=== PATIENT | female | born 1970 | race Caucasian/White ===

== ENCOUNTER → 2017-05-10 20:49 | Emergency (ER) | payer BC ==
[2017-05-10 21:38] VITALS: BP 150/90
== END | disposition left against medical advice (07) ==
LOC: ED 20:49
DX: R20.0 Anesthesia of skin (principal); R20.2 Paresthesia of skin; Z53.21 Procedure and treatment not carried out due to patient leaving prior to being seen by health care provider
CPT/HCPCS: 99281

== ENCOUNTER 2017-06-22 10:35 | Inpatient (IN) | payer BC ==
[2017-06-22] MEDS ORDERED: NS 0.9% 1000 ML* 1,000 ML IV ONE ×2 (11:21→15:56)
[2017-06-22] MEDS ORDERED: Morphine INJ* 4 MG/ML 1 ML CARPUJECT IV ONE (11:21)
[2017-06-22] MEDS ORDERED: Ondansetron INJ* 2 MG/ML VIAL IV ONE (11:21)
[2017-06-22 12:00] LABS: Hematocrit 37 % (35-47); Hemoglobin 12.3 g/dl (12.0-16.0); Mean Corpuscular HGB Conc 33 g/dl (31-36); Mean Corpuscular Hemoglobin 29 pg (27-31); Mean Corpuscular Volume 86 fL (80-97); Mean Platelet Volume 7 um3 (7.4-10.4); Red Blood Count 4.32 10^6/ul (4.0-5.4); Red Cell Distribution Width 16 % (10.5-15); White Blood Count 8.5 10^3/ul (3.5-10.8)
[2017-06-22 12:13] LABS: ALT 41 U/L (7-52); AST 101 U/L (13-39); Albumin 3.4 g/dL (3.2-5.2); Alkaline Phosphatase 56 U/L (34-104); Anion Gap 10 mmol/L (2-11); BUN/Creatinine Ratio 16.4 (8-20); Blood Urea Nitrogen 9 mg/dL (6-24); C Reactive Protein < 1.00 mg/L (< 5.00); CO2 Carbon Dioxide 23 mmol/L (22-32); Calcium 8.1 mg/dL (8.6-10.3); Chloride 102 mmol/L (101-111); EGFR African American 153.7 (>60); EGFR Non-African American 119.5 (>60); Globulin 2.9 g/dL (2-4); Glucose 134 mg/dL (70-100); Lipase 43 U/L (11.0-82.0); Potassium 3.4 mmol/L (3.5-5.0); Sodium 135 mmol/L (133-145); Total Protein 6.3 g/dL (6.4-8.9)
--- NOTE | 2017-06-22 12:14 | RAD ---
Indication: Cough. 2 views of the chest including dual energy PA views demonstrates no mediastinal shift. Heart is of normal size and configuration. Lung killian appear clear. IMPRESSION: No active cardiopulmonary disease is noted.
[2017-06-22 13:11] LABS: Alcohol 274 mg/dL (<10)
[2017-06-22] MEDS ORDERED: LORazepam INJ* 2 MG/ML 1 ML VIAL IV PUSH ONE ×2 (13:14→15:56)
[2017-06-22] MEDS ORDERED: Iodixanol* (CONTRAST) 320 MG/ML 100 ML SDV IV ONE (13:22)
--- NOTE | 2017-06-22 13:54 | RAD ---
INDICATION: Abdominal pain also left flank pain. History of gastric bypass COMPARISON: None TECHNIQUE: Axial source images were obtained from the hemidiaphragms to the symphysis pubis following administration of oral and intravenous contrast. 100 mL Visipaque 320 was utilized. Coronal and sagittal reconstructed images were acquired. Lung bases: The lung bases are clear. Liver: The liver is enlarged with findings of hepatic steatosis. There are no masses. There is no ductal dilatation. Gallbladder: There are no calcified gallstones. There is no evidence of wall thickening or pericholecystic fluid. The gallbladder is mildly distended Spleen: The spleen is normal in size. There are no masses. Pancreas: There is no focal pancreatic mass or ductal dilatation. Adrenal glands: There is no evidence of adrenal mass. Kidneys: The kidneys are normal in size and position. There are prompt nephrograms and there is prompt excretion bilaterally. There are no renal parenchymal masses. There is no evidence of nephrolithiasis. Air-fluid levels in the minor pelvis Adenopathy: There is no evidence of adenopathy by size criteria. Fluid collections: There are no free or localized fluid collections. Vessels:There are no significant atherosclerotic changes involving the aorta. There is no focal aneurysm. The iliac vessels are normal in caliber. The IVC appears normal. GI tract: There are no acute CT bowel findings. There is no obstruction. The stomach and small bowel appear normal. The lower GI tract is normal. The cecum, ileocecal valve, and terminal ileum appear normal. The appendix is visualized and appear normal. Pelvic organs: The uterus and adnexa appear normal Bladder: There are no bladder masses. Abdominal and pelvic soft tissues: The extraperitoneal abdominal and pelvic soft tissues appear normal.. Osseous structures: There are no acute osseous findings. Other: None IMPRESSION: HEPATOMEGALY WITH HEPATIC STEATOSIS, OTHERWISE NEGATIVE.
[2017-06-22 14:15] LABS: Urine Bilirubin Negative (Negative); Urine Glucose Negative (Negative); Urine Nitrite Negative (Negative)
[2017-06-22] MEDS ORDERED: Ondansetron INJ* 2 MG/ML VIAL IV PRN (17:26)
[2017-06-22] MEDS ORDERED: Albuterol/Ipratropium NEB.SOL* Albuterol 2.5 MG/Ipratropium 0.5 MG 3 ML INH PRN (17:26)
[2017-06-22] MEDS ORDERED: Nicotine Inhaler* 10 MG AMP INH PRN (17:31)
[2017-06-22] MEDS ORDERED: Dextrose 50% Syringe 50 ML* 25 GM/50 ML SYRINGE IV PUSH PRN (17:43)
[2017-06-22] MEDS ORDERED: hydrALAZINE IV* 20 MG/ML VIAL IV SLOW PU PRN (17:44)
[2017-06-22] MEDS ORDERED: Ondansetron INJ* 2 MG/ML VIAL ONE (18:42)
[2017-06-22] MEDS ORDERED: LORazepam INJ* 2 MG/ML 1 ML VIAL ONE (18:46)
[2017-06-22] MEDS: LORazepam INJ* 2 MG/ML 1 ML VIAL IV PUSH SCH ×3 (18:52→22:22)
[2017-06-22] MEDS ORDERED: Ketorolac INJ* 15 MG/ML 1 ML VIAL IV PUSH ONE (18:52)
[2017-06-22] MEDS ORDERED: Thiamine IV* 100 MG, Folic Acid IV* 1 MG, Multiple Vitamin IV ADULT* 10 ML in NS 0.9% 1... IV ONE (19:30)
[2017-06-22] MEDS ORDERED: Mouth Piece, Nicotine* 1 EACH CARTRIDGE INH SCH (19:39)
[2017-06-22] MEDS: Famotidine IV* 10 MG/ML 2 ML (20 mg) IV SCH (20:29)
[2017-06-22] MEDS: Enoxaparin(*) 40 MG/0.4 ML SYR SUBCUT SCH (20:35)
[2017-06-22] MEDS ORDERED: Albuterol 2.5 MG/3 ML NEB.SOL* (0.083%) INH PRN (21:05)
[2017-06-22] MEDS: Insulin LISPRO* 1 UNITS UNIT SUBCUT SCH (21:53)
--- NOTE | 2017-06-22 22:51 | HP ---
CC: ISABELLE Hodgson * ADMISSION HISTORY AND PHYSICAL: DATE OF ADMISSION: 06/22/17 PRIMARY CARE PROVIDER: ISABELLE Hodgson ADMITTING PROVIDER: ISABELLE Stanford SUPERVISING PHYSICIAN: Abilio Paz MD* (DICATED BY ISABELLE STANFORD) CHIEF COMPLAINT: Nausea and vomiting and request for detox. HISTORY OF PRESENT ILLNESS: This is a 47-year-old female with history of alcoholism, hypertension, diabetes who presented to the emergency department with complaints of nausea and vomiting and request for detox. The patient states that she has been poorly for the last 8 days or so and has been attempting to taper herself from alcohol, but feels that she has been unsuccessful in doing so. She drank 2 beers and took 2 shots before coming to the ER to help with the shaking earlier today. She has not been sober in the last 4 to 5 years. She denies any history of seizures associated with withdrawal. In addition to the nausea and vomiting, she has also been having significant amounts of diarrhea over the last week or so. She reports some left -sided flank/back pain over the last 5 days, which is quite uncomfortable, worse with cough and vomiting. She reports a dry cough and some mild shortness of breath. She reports smoking about a pack of cigarettes daily. Denies any fevers, but has had occasional chills. Her appetite has been poor. She has not taken any of her home medications in the last 2 days. She gives a history of an episode of severe hypoglycemia that occurred last week. She stopped her glipizide following that episode but then her glucose began to climb into the mid 200s and she restarted it again earlier this week, but has been without it for the last 2 days. PAST MEDICAL HISTORY: 1. Alcoholism. 2. Hypertension. 3. Diabetes. PAST SURGICAL HISTORY: 1. Gastric bypass. 2. Tubal ligation. 3. x2. 4. Bilateral carpal tunnel release. HOME MEDICATIONS: 1. Albuterol 1 to 2 puffs inhaled q.4 hours as needed for shortness of breath. 2. Ibuprofen 400 mg p.o. q.6 hours as needed for pain. 3. Lisinopril/hydrochlorothiazide 20/25 mg 1 tablet p.o. daily. 4. Glipizide XL 5 mg p.o. daily. SOCIAL HISTORY: The patient lives at home with her boyfriend. 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 She has 2 adult sons. She smokes a pack of cigarettes daily. She admits to drinking about 12 pack of beer daily along with a pint of hard liquor. Denies any illicit drug use. REVIEW OF SYSTEMS: As noted above in HPI, otherwise reviewed and considered negative. PHYSICAL EXAMINATION GENERAL: This is a middle-aged female, in no acute distress, accompanied by a female friend. VITAL SIGNS: Temperature 96.3 degrees Fahrenheit, pulse 104 beats per minute, respiratory rate 16 per minute, oxygen saturation 99% on room air, blood pressure initially noted at 203/127 mmHg, last checked at 169/96. HEENT: Head is normocephalic, atraumatic. Mucous membranes are mildly dry. CARDIOVASCULAR: Rate is tachycardic but regular. No murmurs, rubs or gallops. RESPIRATORY: Lungs are clear to auscultation without wheezes, crackles, or rhonchi. ABDOMEN: Soft and nontender to palpation. EXTREMITIES: No edema noted. SKIN: No concerning rashes or lesions. MUSCULOSKELETAL: The patient has some tenderness to palpation over the left flank region/paraspinal area, which is exacerbated with movement. PSYCH: The patient is alert and appropriate in conversation. Affect is somewhat flat and mood is appropriate to the situation. LABORATORY DATA: CBC shows white blood cell count of 8500, hemoglobin of 12.3 g/dL, platelet count of 255,000. Comprehensive metabolic panel shows a sodium of 135, potassium 3.4, BUN 9, creatinine 0.55, random glucose of 134 mg/dL. Lactic acid 3.;, on repeat down to 2.5. Transaminases and total bilirubin within normal limits. Troponin negative at 0.00. CRP normal at less than 1. Lipase normal at 43. Urinalysis has been unremarkable. Serum alcohol level of 274. IMAGING: Chest x-ray shows no acute process. CTA of the abdomen and pelvis shows no acute process. ASSESSMENT AND PLAN: This is a 47-year-old female with significant history of alcoholism as well as hypertension, hyperlipidemia, who presents with complaints of nausea and vomiting and requests for detox. 1. Alcoholism with early withdrawal - the patient still has significantly elevated serum alcohol level at 274, but is noted to be hypertensive and tachycardic and mildly tremulous in the emergency department. So far, she has received 4 mg of IV Ativan. Her nausea has improved since reaching the emergency department. The patient desires detox and would eventually like to consider rehab most likely outpatient. She will receive a banana bag and be started on daily thiamine as well as folate in addition to multivitamin. We will start a WAM protocol and treat withdrawal symptoms with IV lorazepam as needed. 2. Hypertension - the patient is severely hypertensive in the emergency department and expected the majority of this is likely due to her withdrawal symptoms. She also has chronic hypertension and has missed a couple of days of her medications. We will give her usual home medicines as long as she can continue to tolerate oral and treat with p.r.n. IV hydralazine for more severe hypertension during her hospital stay, but anticipate this will improve as her withdrawal symptoms are treated. 3. Diabetes - the patient is [id number] and glucose is reasonable in the emergency department. We will hold her glipizide as her oral intake will likely be unpredictable and cover with sliding scale Humalog on an as needed basis. 4. Code status. The patient is full code. 5. DVT prophylaxis. She will be started on 40 mg of Lovenox subcu daily. 6. Healthcare proxy. The patient has not identified a proxy at this time. DISPOSITION: The patient is being admitted to inpatient status for acute alcohol withdrawal. Anticipate length of stay to be greater than 2 midnights. ISABELLE STANFORD [id number]/CPS #: [id number] ELIAN
[2017-06-23] MEDS: LORazepam INJ* 2 MG/ML 1 ML VIAL IV PUSH SCH ×4 (00:30→22:24)
[2017-06-23 06:38] LABS: Hematocrit 31 % (35-47); Hemoglobin 10.4 g/dl (12.0-16.0); Mean Corpuscular HGB Conc 34 g/dl (31-36); Mean Corpuscular Hemoglobin 29 pg (27-31); Mean Corpuscular Volume 87 fL (80-97); Mean Platelet Volume 7 um3 (7.4-10.4); Red Blood Count 3.55 10^6/ul (4.0-5.4); Red Cell Distribution Width 16 % (10.5-15); White Blood Count 5.5 10^3/ul (3.5-10.8)
[2017-06-23 06:55] LABS: BUN/Creatinine Ratio 12.3 (8-20); Calcium 7.2 mg/dL (8.6-10.3); EGFR African American 147.5 (>60); EGFR Non-African American 114.7 (>60); Potassium 3.2 mmol/L (3.5-5.0)
[2017-06-23] MEDS ORDERED: Influenza VAC *QUAD* 2017-18* 0.5 ML SYRINGE IM ONE (09:00)
[2017-06-23] MEDS: Thiamine TAB* 100 MG TAB PO SCH (09:23)
[2017-06-23] MEDS: Multivitamins/Minerals TAB PO SCH (09:23)
[2017-06-23] MEDS: Folic Acid TAB* 1 MG PO SCH (09:24)
[2017-06-23] MEDS: Insulin LISPRO* 1 UNITS UNIT SUBCUT SCH ×4 (09:24→20:49)
[2017-06-23] MEDS: Hydrochlorothiazide TAB* 25 MG PO SCH (09:24)
[2017-06-23] MEDS: Lisinopril TAB* 10 MG PO SCH (09:24)
[2017-06-23] MEDS: Famotidine IV* 10 MG/ML 2 ML (20 mg) IV SCH ×2 (09:24→20:36)
[2017-06-23 09:46] LABS: Magnesium 1.7 mg/dL (1.9-2.7)
[2017-06-23] MEDS: Potassium Chlor TAB* 20 MEQ TAB.ER PO SCH ×2 (10:45→13:22)
[2017-06-23] MEDS ORDERED: Magnesium Sulfate 2 GM IV* 2 GM/50 ML BAG IVPB ONE (13:39)
--- NOTE | 2017-06-23 13:45 | PN ---
Subjective Date of Service: 06/23/17 Interval History: Patient seen and examined at bedside. Pt states that she has been having nausea and some diarrhea. Denies fever, chills, shortness of breath, chest discomfort, or vomiting. Pt states that she is interested in rehab but not sure if she would like to do inpatient or outpatient. Family History: Unchanged from Admission Social History: Unchanged from Admission Past Medical History: Unchanged from Admission Objective Active Medications: Albuterol (Ventolin 2.5 Mg/3 Ml Neb.Elma*) 2.5 mg INH Q2H PRN Reason: SOB/ WHEEZING Albuterol/Ipratropium (Duoneb (Albuterol 2.5 Mg/Ipratropium 0.5 Mg)) 1 neb INH [id number] AWAKE PRN Reason: sob/wheezing Device (Nicotine Mouth Piece*) 1 each INH .[facility] Dextrose (D50w Syringe 50 Ml*) 12.5 gm IV PUSH .FOR FS < 60 - SS PRN Reason: FS < 60 Enoxaparin Sodium (Lovenox(*)) 40 mg SUBCUT Q24H [facility] Famotidine (Pepcid Iv*) 10 mg IV BID [facility] Folic Acid (Folvite Tab*) 1 mg PO DAILY [facility] Hydralazine HCl (Apresoline Iv*) 5 mg IV SLOW PU Q4H PRN Reason: sBP>180mmHg Hydrochlorothiazide (Hydrodiuril Tab*) 25 mg PO DAILY [facility] Lactated Ringer's (Lactated Ringers 1000 Ml Bag*) 1,000 mls @ 75 mls/hr IV PER RATE [facility] Insulin Human Lispro (Humalog*) 0 units SUBCUT ACHS [facility] Lisinopril (Prinivil Tab*) 20 mg PO DAILY [facility] Lorazepam (Ativan Inj*) 0 - 3 mg IV PUSH .PER [facility] PROTOCOL [facility] Reason: Protocol Multivitamins/Minerals (Theragran/Minerals Tab*) 1 tab PO DAILY [facility] Nicotine (Nicotine Inhaler*) 10 mg INH Q2H PRN Reason: CRAVING Ondansetron HCl (Zofran Inj*) 4 mg IV Q4H PRN Reason: NAUSEA/VOMITING Potassium Chloride (Klor Con Er Tab*) 40 meq PO Q4H [facility] Stop: 06/23/17 14:01 Thiamine HCl (Vitamin B-1 Tab*) 100 mg PO DAILY [facility] Vital Signs 06/22/17 06/22/17 06/22/17 17:30 18:00 18:29 Temperature 98.6 F Pulse Rate 117 111 111 Respiratory 24 Rate Blood Pressure 188/96 171/82 157/96 (mmHg) O2 Sat by Pulse 96 96 97 Oximetry 06/22/17 06/22/17 06/22/17 18:52 19:52 20:11 Temperature 98.1 F Pulse Rate 115 Respiratory 24 20 24 Rate Blood Pressure 170/108 (mmHg) O2 Sat by Pulse 98 Oximetry 06/22/17 06/22/17 06/22/17 20:26 21:26 22:12 Temperature 97.9 F Pulse Rate 109 Respiratory 20 22 20 Rate Blood Pressure 171/114 (mmHg) O2 Sat by Pulse 98 Oximetry 06/22/17 06/22/17 06/22/17 22:22 22:44 23:22 Temperature Pulse Rate Respiratory 22 18 18 Rate Blood Pressure (mmHg) O2 Sat by Pulse 97 Oximetry 06/23/17 06/23/17 06/23/17 00:30 00:33 01:30 Temperature 98.4 F Pulse Rate 103 Respiratory 19 16 18 Rate Blood Pressure 141/74 (mmHg) O2 Sat by Pulse 97 Oximetry 06/23/17 06/23/17 06/23/17 02:09 02:27 03:27 Temperature Pulse Rate 98 Respiratory 16 18 17 Rate Blood Pressure 147/78 (mmHg) O2 Sat by Pulse 96 Oximetry 06/23/17 06/23/17 06/23/17 04:00 06:10 07:49 Temperature 98.1 F Pulse Rate 89 90 87 Respiratory 16 16 21 Rate Blood Pressure 150/74 151/91 153/86 (mmHg) O2 Sat by Pulse 96 98 97 Oximetry 06/23/17 06/23/17 06/23/17 08:00 08:48 10:31 Temperature 98.3 F Pulse Rate 92 93 Respiratory 16 16 18 Rate Blood Pressure 143/79 (mmHg) O2 Sat by Pulse 98 98 Oximetry Oxygen Devices in Use Now: None Appearance: NAD, laying in bed Ears/Nose/Mouth/Throat: Mucous Membranes Moist Respiratory: Symmetrical Chest Expansion and Respiratory Effort, Clear to Auscultation Cardiovascular: NL Sounds; No Murmurs; No JVD, RRR Abdominal: NL Sounds; No Tenderness; No Distention Extremities: No Edema Skin: No Rash or Ulcers Neurological: Alert and Oriented x 3, NL Muscle Strength and Tone Lines/Tubes/Other Access: Clean, Dry and Intact Peripheral IV - site benign Nutrition: Taking PO's Result Diagrams: 06/23/17 06:27 06/23/17 06:27 Microbiology and Other Data: Microbiology 06/23/17 10:00 Stool Gross Appearance - Final Stool C. difficile DNA Amplification - Final 027 Presumptive NEGATIVE Toxigenic C.diff NEGATIVE Assess/Plan/Problems-Billing Assessment: Ms. Wu is a 47 yo female with PMH significant for HTN, diabetes and alcoholism who presented to the emergency rom with complaints of nausea and vomiting and was requesting alcohol detox. - Patient Problems (1) Alcohol withdrawal Code(s): F10.239 - ALCOHOL DEPENDENCE WITH WITHDRAWAL, UNSPECIFIED SNOMED Code (s): 084043384 Comment: - WAM score 4-9 - Social work consult pending, Pt would like rehab - Continue thiamine and mulitivitamin - Continue WAM protocol and ativan PRN (2) Electrolyte abnormality Code(s): E87.8 - OTH DISORDERS OF ELECTROLYTE AND FLUID BALANCE, NEC SNOMED Code(s): 724607044 Comment: - Suspect secondary to diarrhea - Hypokalemia - will give replacement today and recheck labs in the AM - hypomagnesemia - will give replacement today and recheck labs in the AM (3) HTN (hypertension) Code(s): I10 - ESSENTIAL (PRIMARY) HYPERTENSION SNOMED Code(s): 39205339 Comment: - SBP 140-170's, improving - suspect this is secondary to withdrawal symptoms - Continue lisinopril, HCTZ, and prn hydralazine (4) Diabetes Code(s): E11.9 - TYPE 2 DIABETES MELLITUS WITHOUT COMPLICATIONS SNOMED Code(s) : 30808198 Comment: - Glucose 120-150's - Hold home glipizide - Continue Lispro SS (5) DVT prophylaxis Code(s): HVL7678 - SNOMED Code(s): 819365567 Comment: - SQ Lovenox (6) Full code status Code(s): Z78.9 - OTHER SPECIFIED HEALTH STATUS SNOMED Code(s): 430341465 Status and Disposition: Inpatient. Discharge to home when medically stable.
[2017-06-23] MEDS: Enoxaparin(*) 40 MG/0.4 ML SYR SUBCUT SCH (17:36)
[2017-06-24] MEDS ORDERED: Acetaminophen TAB* 325 MG ONE (01:31)
[2017-06-24] MEDS: Acetaminophen TAB* 325 MG PO PRN ×3 (01:32→19:21)
[2017-06-24 05:47] LABS: Hematocrit 30 % (35-47); Hemoglobin 10.3 g/dl (12.0-16.0); Mean Corpuscular HGB Conc 34 g/dl (31-36); Mean Corpuscular Hemoglobin 30 pg (27-31); Mean Corpuscular Volume 88 fL (80-97); Mean Platelet Volume 7 um3 (7.4-10.4); Red Blood Count 3.46 10^6/ul (4.0-5.4); Red Cell Distribution Width 16 % (10.5-15); White Blood Count 4.8 10^3/ul (3.5-10.8)
[2017-06-24 06:04] LABS: BUN/Creatinine Ratio 7.3 (8-20); Calcium 7.9 mg/dL (8.6-10.3); EGFR African American 215.7 (>60); EGFR Non-African American 167.8 (>60); Potassium 3.5 mmol/L (3.5-5.0)
--- NOTE | 2017-06-24 08:42 | ED ---
Wm Smith Thomas, scribed for Rishi Neff MD on 06/22/17 at 1146 . Abdominal Pain/Female - HPI Summary HPI Summary: The pt is a 47 y/o F presenting to the ED c/o L-sided flank pain that began a few days ago but significantly worsened today. She admits to being an alcoholic and is trying to cut down on her drinking and be admitted to rehab. She typically drinks beer and hard liquor. She is accompanied by a friend, who says that this alcoholism began five years ago The patient had a gastric bypass in 2008. Today, she admits to drinking two shots and two beers in order to stop the shakes. The pt rates the pain 10/10. The pain is aggravated and alleviated by nothing. The patient has treated the pain with nothing CLINICAL LIAISON. Pt additionally c /o nausea, dry heaves, diarrhea, dizziness, disorientation, anorexia, sweats, chills, a cough, numbness in her feet, mildly painful breathing, and menstrual bleeding that is irregular and bright red. She reports that her dry heaving and diarrhea began about 7 days ago. Pt denies dysuria, hematuria, and abd pain. She has not had any falls lately. She says that she frequently passes out d/t her alcohol consumption. She reports that eight days ago she passed out and was unconscious for two hours before paramedics arrived. Her blood glucose was measured at 20. She refused to go to the hospital. Yesterday, she was also a patient at [place] [facility], where she was discharged after bloodwork was obtained. She is on Glipizide and she has not taken it recently. PMHx: DM, HTN, anxiety, alcoholism. PSHx: gastric bypass. SHx: current smoker, heavy daily alcohol use ( admits to alcoholism), no illicit drug use. FHx: DM, CAD, HTN. - History of Current Complaint Chief Complaint: EDGeneral Stated Complaint: LEFT FLANK PAIN, DIARRHEA , Time Seen by Provider: 06/22/17 11:19 Hx Obtained From: Patient, Family/Corrosion Control Technician - friend Keiry is present Hx Last Menstrual Period: 12/20/15 Onset/Duration: Lasting Days - onset "a few days ago", Still Present, Worse Since - this AM Timing: Constant Severity Currently: Severe Pain Intensity: 10 Pain Scale Used: 0-10 Numeric Location: Flank - L-sided Radiates: No Aggravating Factor(s): Nothing Alleviating Factor(s): Position Associated Signs and Symptoms: Positive: Cough, Dizzy, Decreased Appetite, Nausea, Vomiting - dry heaves, Diarrhea, Other: - POS: L-sided flank pain, sweats, numbness in her feet, mildly painful breathing, irregular menstrual bleeding. Negative: Urinary Symptoms Allergies/Adverse Reactions: Allergies Allergy/AdvReac Type Severity Reaction Status Date / Time Celecoxib [From Celebrex] Allergy Intermediate Itching Verified 06/22/17 19:09 Home Medications: Home Medications Albuterol HFA INHALER* [Ventolin HFA Inhaler*] 2 puff INH Q4H PRN 06/22/17 [ History Confirmed 06/22/17] Albuterol inh POWDER (NF) [Proair Respiclick] 1 - 2 puff INH Q4HR PRN 06/22/17 [ History Confirmed 06/22/17] Ibuprofen TAB* [Advil TAB*] 400 mg PO Q6H PRN 06/22/17 [History Confirmed ] Lisinopril/HCTZ 20/25(NF) [Zestoretic 20/25(NF)] 1 tab PO DAILY 06/22/17 [ History Confirmed 06/22/17] glipiZIDE TAB.XL* [Glucotrol XL*] 5 mg PO DAILY 06/22/17 [History Confirmed 09/26] PMH/Surg Hx/FS Hx/Imm Hx Previously Healthy: No Endocrine/Hematology History: Reports: Hx Diabetes Cardiovascular History: Reports: Hx Hypertension Psychiatric History: Reports: Hx Substance Abuse - Alcoholism - Cancer History Hx Chemotherapy: No Hx Radiation Therapy: No - Surgical History Surgery Procedure, Year, and Place: C SECTION -2,. gastric bypass 06/2009. [place] Infectious Disease History: No Infectious Disease History: Denies: Hx Clostridium Difficile, Hx Hepatitis, Hx Human Immunodeficiency Virus (HIV), Hx of Known/Suspected MRSA, Hx Shingles, Hx Tuberculosis, Hx Known/ Suspected VRE, Hx Known/Suspected VRSA, History Other Infectious Disease, Traveled Outside the [place] in Last 30 Days - Family History Known Family History: Positive: Cardiac Disease, Hypertension, Diabetes - Social History Alcohol Use: Daily Alcohol Amount: 6 beers and hard liquor daily, wine Substance Use Type: Reports: None Smoking Status (MU): Heavy Every Day Tobacco Smoker Type: Cigarettes Amount Used/How Often: 1/2 ppd Review of Systems Positive: Chills, Other - POS: sweats. Negative: Fever Negative: Erythema - eyes Negative: Sore Throat Negative: Chest Pain Positive: Cough, Other - POS: mildly painful breathing. Negative: Shortness Of Breath Positive: Vomiting - dry heaves, Diarrhea, Nausea, Other - POS: anorexia. Negative: Abdominal Pain Positive: flank pain - L-sided (onset a few days ago), other - POS: irregular menstrual bleeding. Negative: dysuria, hematuria Negative: Myalgia, Edema - leg Negative: Rash Neurological: Other - POS: dizziness, disorientation Positive: Numbness - in her feet All Other Systems Reviewed And Are Negative: Yes Physical Exam - Summary Physical Exam Summary: Constitutional: Well-developed, Well-nourished, Alert. (-) Distressed Skin: Warm, Dry HENT: Normocephalic; Atraumatic Eyes: Conjunctiva normal Neck: Musculoskeletal ROM normal neck. (-) JVD, (-) Stridor, (-) Tracheal deviation Cardio: Rhythm regular, rate normal, Heart sounds normal; Intact distal pulses; The pedal pulses are 2+ and symmetric. Radial pulses are 2+ and symmetric. (-) Murmur Pulmonary/Chest wall: Effort normal. (-) Respiratory distress, (-) Wheezes, (-) Rales Abd: Soft, (-) Tenderness, (-) Distension, (-) Guarding, (-) Rebound Musculoskeletal: (-) Edema Lymph: (-) Cervical adenopathy Neuro: Alert, Oriented x3 Psych: Mood and affect Normal Triage Information Reviewed: Yes Vital Signs On Initial Exam: Initial Vitals Temp Pulse Resp BP Pulse Ox 96.3 F 104 16 203/127 99 06/22/17 10:42 06/22/17 10:42 06/22/17 10:42 06/22/17 10:42 06/22/17 10:42 Vital Signs Reviewed: Yes Diagnostics - Vital Signs Vital Signs Temp Pulse Resp BP Pulse Ox 06/22/17 11:36 16 06/22/17 11:22 98.5 F 101 20 189/108 97 06/22/17 11:00 98 98 06/22/17 10:53 100 96 06/22/17 10:52 189/108 06/22/17 10:42 96.3 F 104 16 203/127 99 - Laboratory Lab Results: Lab Results 06/22/17 06/22/17 06/22/17 Range/Units 11:40 11:40 11:40 WBC 8.5 (3.5-10.8) 10^3/ul RBC 4.32 (4.0-5.4) 10^6/ul Hgb 12.3 (12.0-16.0) g/dl Hct 37 (35-47) % MCV 86 (80-97) fL MCH 29 (27-31) pg MCHC 33 (31-36) g/dl RDW 16 H (10.5-15) % Plt Count 255 (150-450) 10^3/ul MPV 7 L (7.4-10.4) um3 Neut % (Auto) 66.1 (38-83) % Lymph % (Auto) 24.6 L (25-47) % George % (Auto) 7.6 (1-9) % Eos % (Auto) 0.3 (0-6) % Baso % (Auto) 1.4 (0-2) % Absolute Neuts (auto) 5.6 (1.5-7.7) 10^3/ul Absolute Lymphs (auto) 2.1 (1.0-4.8) 10^3/ul Absolute Monos (auto) 0.6 (0-0.8) 10^3/ul Absolute Eos (auto) 0 (0-0.6) 10^3/ul Absolute Basos (auto) 0.1 (0-0.2) 10^3/ul Absolute Nucleated RBC 0 10^3/ul Nucleated RBC % 0 Sodium 135 (133-145) mmol/L Potassium 3.4 L (3.5-5.0) mmol/L Chloride 102 (101-111) mmol/L Carbon Dioxide 23 (22-32) mmol/L Anion Gap 10 (2-11) mmol/L BUN 9 (6-24) mg/dL Creatinine 0.55 (0.51-0.95) mg/dL Est GFR ( Amer) 153.7 (>60) Est GFR (Non-Af Amer) 119.5 (>60) BUN/Creatinine Ratio 16.4 (8-20) Glucose 134 H (70-100) mg/dL Lactic Acid 3.1 H* (0.5-2.0) mmol/L Calcium 8.1 L (8.6-10.3) mg/dL Total Bilirubin 0.40 (0.2-1.0) mg/dL AST 101 H (13-39) U/L ALT 41 (7-52) U/L Alkaline Phosphatase 56 (34-104) U/L Troponin I 0.00 (<0.04) ng/mL C-Reactive Protein < 1.00 (< 5.00) mg/L Total Protein 6.3 L (6.4-8.9) g/dL Albumin 3.4 (3.2-5.2) g/dL Globulin 2.9 (2-4) g/dL Albumin/Globulin Ratio 1.2 (1-3) Lipase 43 (11.0-82.0) U/L Urine Color Urine Appearance Urine pH (5-9) Ur Specific [place] (1.010-1.030) Urine Protein (Negative) Urine Ketones (Negative) Urine Blood (Negative) Urine Nitrate (Negative) Urine Bilirubin (Negative) Urine Urobilinogen (Negative) Ur Leukocyte Esterase (Negative) Urine Glucose (Negative) Serum Alcohol 274 H (<10) mg/dL 06/22/17 06/22/17 Range/Units 11:57 16:32 WBC (3.5-10.8) 10^3/ul RBC (4.0-5.4) 10^6/ul Hgb (12.0-16.0) g/dl Hct (35-47) % MCV (80-97) fL MCH (27-31) pg MCHC (31-36) g/dl RDW (10.5-15) % Plt Count (150-450) 10^3/ul MPV (7.4-10.4) um3 Neut % (Auto) (38-83) % Lymph % (Auto) (25-47) % George % (Auto) (1-9) % Eos % (Auto) (0-6) % Baso % (Auto) (0-2) % Absolute Neuts (auto) (1.5-7.7) 10^3/ul Absolute Lymphs (auto) (1.0-4.8) 10^3/ul Absolute Monos (auto) (0-0.8) 10^3/ul Absolute Eos (auto) (0-0.6) 10^3/ul Absolute Basos (auto) (0-0.2) 10^3/ul Absolute Nucleated RBC 10^3/ul Nucleated RBC % Sodium (133-145) mmol/L Potassium (3.5-5.0) mmol/L Chloride (101-111) mmol/L Carbon Dioxide (22-32) mmol/L Anion Gap (2-11) mmol/L BUN (6-24) mg/dL Creatinine (0.51-0.95) mg/dL Est GFR ( Amer) (>60) Est GFR (Non-Af Amer) (>60) BUN/Creatinine Ratio (8-20) Glucose (70-100) mg/dL Lactic Acid 2.5 H* (0.5-2.0) mmol/L Calcium (8.6-10.3) mg/dL Total Bilirubin (0.2-1.0) mg/dL AST (13-39) U/L ALT (7-52) U/L Alkaline Phosphatase (34-104) U/L Troponin I (<0.04) ng/mL C-Reactive Protein (< 5.00) mg/L Total Protein (6.4-8.9) g/dL Albumin (3.2-5.2) g/dL Globulin (2-4) g/dL Albumin/Globulin Ratio (1-3) Lipase (11.0-82.0) U/L Urine Color Colorless Urine Appearance Clear Urine pH 6.0 (5-9) Ur Specific [place] 1.003 L (1.010-1.030) Urine Protein Negative (Negative) Urine Ketones Negative (Negative) Urine Blood Negative (Negative) Urine Nitrate Negative (Negative) Urine Bilirubin Negative (Negative) Urine Urobilinogen Negative (Negative) Ur Leukocyte Esterase Negative (Negative) Urine Glucose Negative (Negative) Serum Alcohol (<10) mg/dL Result Diagrams: 06/24/17 05:30 06/24/17 05:30 Lab Statement: Any lab studies that have been ordered have been reviewed, and results considered in the medical decision making process. - Radiology CXR Xray Interpretation: No Acute Changes - No active cardiopulmonary disease. ED physician has read this report and agrees. Radiology Interpretation Completed By: Radiologist - CT CT Abd/Pel CT Interpretation: Positive (See Comments) - CT Abd/Pel shows hepatomegaly with hepatic steatosis, otherwise negative. ED Physician has reviewed this report and agrees. CT Interpretation Completed By: Radiologist Re-Evaluation - Re-Evaluation First Eval Re-Evaluation Time: 16:00 Change: Unchanged Comment: The patient is tremulous, HR is in the low 100s, and BP is 150s systolic. I offered outpatient management for alcohol withdrawal. The patient said that she did not feel comfortable going home. Abdominal Pain Fem Course/Dx - Course Course Of Treatment: The pt is a 47 y/o F with a Hx of alcoholism and gastric bypass L-sided flank pain that began a few days ago but significantly worsened today. Pt additionally c/o nausea, dry heaves, diarrhea, dizziness, disorientation, anorexia, sweats, chills, a cough, numbness in her feet, mildly painful breathing, and menstrual bleeding that is irregular and bright red. She reports that her dry heaving and diarrhea began about 7 days ago. Yesterday, she was also a patient at [place] [facility], where she was discharged after bloodwork was obtained. Records from [place] were obtained. At re-evaluation at 15:56, the patient is tremulous, HR is in the low 100s, and BP is 150s systolic. I offered outpatient management for alcohol withdrawal. The patient said that she did not feel comfortable going home. In the ED course, the patient was given IV fluids, Ativan, Morphine, and Zofran. Bloodwork was obtained and it shows serum alcohol 274, lactic acid 3.1, and lipase 43. UA shows specific gravity 1.003. EKG shows biphasic T-waves V3-V6. CXR was negative. CT Abd/Pel shows hepatomegaly with hepatic steatosis, otherwise negative. ED Physician has reviewed this report and agrees. I consulted with ISABELLE Osei, at 16:40. She admits the patient to [facility]. - Diagnoses Provider Diagnoses: Alcohol withdrawal - Provider Notifications Discussed Care Of Patient With: Aaron Grier Time Discussed With Above Provider: 16:40 Instructed by Provider To: Other - She admits the patient to [facility]. Discharge - Discharge Plan Condition: Fair Disposition: ADMITTED TO [facility] The documentation as recorded by the eseibWm elmore Thomas accurately reflects the service I personally performed and the decisions made by me, Rishi Neff MD.
[2017-06-24] MEDS: Insulin LISPRO* 1 UNITS UNIT SUBCUT SCH ×4 (08:45→21:13)
[2017-06-24] MEDS: Lisinopril TAB* 10 MG PO SCH (08:45)
[2017-06-24] MEDS: Hydrochlorothiazide TAB* 25 MG PO SCH (08:45)
[2017-06-24] MEDS: Famotidine IV* 10 MG/ML 2 ML (20 mg) IV SCH ×2 (08:45→21:15)
[2017-06-24] MEDS: Thiamine TAB* 100 MG TAB PO SCH (08:45)
[2017-06-24] MEDS: Multivitamins/Minerals TAB PO SCH (08:45)
[2017-06-24] MEDS: Folic Acid TAB* 1 MG PO SCH (08:45)
[2017-06-24] MEDS: LORazepam INJ* 2 MG/ML 1 ML VIAL IV PUSH SCH ×2 (09:33→19:22)
--- NOTE | 2017-06-24 15:23 | PN ---
Subjective Date of Service: 06/24/17 Interval History: Patient seen and examined at bedside. Pt states that she is feeling ok, she reports tremors this afternoon and some anxiety. Denies fever, chills, shortness of breath, chest discomfort, N/V/D. Pt states that she would like to go to outpatient alcohol rehab and has been provided with phone numbers for local agencies. Family History: Unchanged from Admission Social History: Unchanged from Admission Past Medical History: Unchanged from Admission Objective Active Medications: Acetaminophen (Tylenol Tab*) 650 mg PO Q6H PRN Reason: FEVER/PAIN Albuterol (Ventolin 2.5 Mg/3 Ml Neb.Elma*) 2.5 mg INH Q2H PRN Reason: SOB/ WHEEZING Albuterol/Ipratropium (Duoneb (Albuterol 2.5 Mg/Ipratropium 0.5 Mg)) 1 neb INH [id number] AWAKE PRN Reason: sob/wheezing Device (Nicotine Mouth Piece*) 1 each INH .CARTRIDGE PENDING SALE TO [facility] Dextrose (D50w Syringe 50 Ml*) 12.5 gm IV PUSH .FOR FS < 60 - SS PRN Reason: FS < 60 Enoxaparin Sodium (Lovenox(*)) 40 mg SUBCUT Q24H DEBBY Famotidine (Pepcid Iv*) 10 mg IV BID DEBBY Folic Acid (Folvite Tab*) 1 mg PO DAILY DEBBY Hydralazine HCl (Apresoline Iv*) 5 mg IV SLOW PU Q4H PRN Reason: sBP>180mmHg Hydrochlorothiazide (Hydrodiuril Tab*) 25 mg PO DAILY PENDING SALE TO [facility] Lactated Ringer's (Lactated Ringers 1000 Ml Bag*) 1,000 mls @ 75 mls/hr IV PER RATE PENDING SALE TO [facility] Insulin Human Lispro (Humalog*) 0 units SUBCUT ACHS DEBBY Lisinopril (Prinivil Tab*) 20 mg PO DAILY DEBBY Lorazepam (Ativan Inj*) 0 - 3 mg IV PUSH .PER [facility] PROTOCOL DEBBY Reason: Protocol Multivitamins/Minerals (Theragran/Minerals Tab*) 1 tab PO DAILY PENDING SALE TO [facility] Nicotine (Nicotine Inhaler*) 10 mg INH Q2H PRN Reason: CRAVING Ondansetron HCl (Zofran Inj*) 4 mg IV Q4H PRN Reason: NAUSEA/VOMITING Thiamine HCl (Vitamin B-1 Tab*) 100 mg PO DAILY PENDING SALE TO [facility] Vital Signs 06/23/17 06/23/17 06/23/17 17:17 18:23 20:00 Temperature 98.1 F 98.3 F Pulse Rate 91 104 Respiratory 18 18 18 Rate Blood Pressure 149/101 134/66 (mmHg) O2 Sat by Pulse 99 99 Oximetry 06/23/17 06/23/17 06/23/17 20:35 20:36 21:36 Temperature 98.2 F Pulse Rate 93 Respiratory 19 18 18 Rate Blood Pressure 153/89 (mmHg) O2 Sat by Pulse 98 Oximetry 06/23/17 06/23/17 06/23/17 22:17 22:24 23:24 Temperature 98.1 F Pulse Rate 101 Respiratory 22 17 18 Rate Blood Pressure 149/75 (mmHg) O2 Sat by Pulse 98 Oximetry 06/24/17 06/24/17 06/24/17 00:07 02:05 04:15 Temperature Pulse Rate 90 79 86 Respiratory 16 16 16 Rate Blood Pressure 131/72 150/87 158/82 (mmHg) O2 Sat by Pulse 98 98 98 Oximetry 06/24/17 06/24/17 06/24/17 06:21 08:00 09:12 Temperature 97.8 F 98.0 F Pulse Rate 83 84 Respiratory 16 16 18 Rate Blood Pressure 155/89 170/103 (mmHg) O2 Sat by Pulse 98 99 Oximetry 06/24/17 06/24/17 06/24/17 09:33 10:33 11:49 Temperature Pulse Rate 86 Respiratory 18 16 18 Rate Blood Pressure 167/102 (mmHg) O2 Sat by Pulse 99 Oximetry 06/24/17 06/24/17 12:09 14:05 Temperature 98.2 F Pulse Rate 84 81 Respiratory 16 20 Rate Blood Pressure 146/93 (mmHg) O2 Sat by Pulse 97 99 Oximetry Oxygen Devices in Use Now: None Appearance: NAD, sitting up on the side of the bed Respiratory: Symmetrical Chest Expansion and Respiratory Effort, Clear to Auscultation Cardiovascular: NL Sounds; No Murmurs; No JVD, RRR Abdominal: NL Sounds; No Tenderness; No Distention Extremities: No Edema Skin: No Rash or Ulcers Neurological: Alert and Oriented x 3, NL Muscle Strength and Tone, - - Hand tremors noted Lines/Tubes/Other Access: Clean, Dry and Intact Peripheral IV - site benign Nutrition: Taking PO's Result Diagrams: 06/24/17 05:30 06/24/17 05:30 Additional Lab and Data: Microbiology and Other Data: Microbiology 06/23/17 10:00 Stool Gross Appearance - Final Stool C. difficile DNA Amplification - Final 027 Presumptive NEGATIVE Toxigenic C.diff NEGATIVE Assess/Plan/Problems-Billing Assessment: Ms. Wu is a 47 yo female with PMH significant for HTN, diabetes and alcoholism who presented to the emergency rom with complaints of nausea and vomiting and was requesting alcohol detox. - Patient Problems (1) Alcohol withdrawal Code(s): F10.239 - ALCOHOL DEPENDENCE WITH WITHDRAWAL, UNSPECIFIED SNOMED Code (s): 564774710 Comment: - With delirium tremens - WAM score 3-6 - Social work consult, Pt would like outpatient rehab - Continue thiamine and mulitivitamin - Continue WAM protocol and ativan PRN (2) Electrolyte abnormality Code(s): E87.8 - OTH DISORDERS OF ELECTROLYTE AND FLUID BALANCE, NEC SNOMED Code(s): 514997260 Comment: - Suspect secondary to diarrhea - Hypokalemia - resolved - hypomagnesemia - resolved (3) HTN (hypertension) Code(s): I10 - ESSENTIAL (PRIMARY) HYPERTENSION SNOMED Code(s): 98372182 Comment: - SBP 140-170's, improving - suspect this is secondary to withdrawal symptoms and possibly too small of a BP cuff being used - Continue lisinopril, HCTZ, and prn hydralazine (4) Diabetes Code(s): E11.9 - TYPE 2 DIABETES MELLITUS WITHOUT COMPLICATIONS SNOMED Code(s) : 98377629 Comment: - Glucose 130-220's - Hold home glipizide - Continue Lispro SS (5) DVT prophylaxis Code(s): CHW0856 - SNOMED Code(s): 640852777 Comment: - SQ Lovenox (6) Full code status Code(s): Z78.9 - OTHER SPECIFIED HEALTH STATUS SNOMED Code(s): 579506370 Status and Disposition: Inpatient. Discharge to home when medically stable, possibly in the AM.
[2017-06-24] MEDS: Enoxaparin(*) 40 MG/0.4 ML SYR SUBCUT SCH (19:22)
[2017-06-25] MEDS: Acetaminophen TAB* 325 MG PO PRN (04:07)
[2017-06-25] MEDS: Famotidine IV* 10 MG/ML 2 ML (20 mg) IV SCH (08:49)
[2017-06-25] MEDS: Folic Acid TAB* 1 MG PO SCH (08:49)
[2017-06-25] MEDS: Hydrochlorothiazide TAB* 25 MG PO SCH (08:49)
[2017-06-25] MEDS: Multivitamins/Minerals TAB PO SCH (08:49)
[2017-06-25] MEDS: Lisinopril TAB* 10 MG PO SCH (08:49)
[2017-06-25] MEDS: Insulin LISPRO* 1 UNITS UNIT SUBCUT SCH ×2 (08:50→13:16)
[2017-06-25] MEDS: Thiamine TAB* 100 MG TAB PO SCH (08:50)
--- NOTE | 2017-06-25 12:45 | PN ---
Subjective Date of Service: 06/25/17 Interval History: Patient seen and examined at bedside. Pt states that she is feeling much better. Denies fever, chills, shortness of breath, N/V/D, or tremors. Pt understands the importance of follow-up with the [facility] drug [place]. Family History: Unchanged from Admission Social History: Unchanged from Admission Past Medical History: Unchanged from Admission Objective Active Medications: Acetaminophen (Tylenol Tab*) 650 mg PO Q6H PRN Reason: FEVER/PAIN Albuterol (Ventolin 2.5 Mg/3 Ml Neb.Elma*) 2.5 mg INH Q2H PRN Reason: SOB/ WHEEZING Albuterol/Ipratropium (Duoneb (Albuterol 2.5 Mg/Ipratropium 0.5 Mg)) 1 neb INH [id number] AWAKE PRN Reason: sob/wheezing Device (Nicotine Mouth Piece*) 1 each INH .[place]TR[place]GE DEBBY Dextrose (D50w Syringe 50 Ml*) 12.5 gm IV PUSH .FOR FS < 60 - SS PRN Reason: FS < 60 Enoxaparin Sodium (Lovenox(*)) 40 mg SUBCUT Q24H DEBBY Famotidine (Pepcid Iv*) 10 mg IV BID DEBBY Folic Acid (Folvite Tab*) 1 mg PO DAILY DEBBY Hydralazine HCl (Apresoline Iv*) 5 mg IV SLOW PU Q4H PRN Reason: sBP>180mmHg Hydrochlorothiazide (Hydrodiuril Tab*) 25 mg PO DAILY DEBBY Insulin Human Lispro (Humalog*) 0 units SUBCUT ACHS DEBBY Lisinopril (Prinivil Tab*) 20 mg PO DAILY DEBBY Lorazepam (Ativan Inj*) 0 - 3 mg IV PUSH .PER [facility] PROTOCOL DEBBY Reason: Protocol Multivitamins/Minerals (Theragran/Minerals Tab*) 1 tab PO DAILY DEBBY Nicotine (Nicotine Inhaler*) 10 mg INH Q2H PRN Reason: CRAVING Ondansetron HCl (Zofran Inj*) 4 mg IV Q4H PRN Reason: NAUSEA/VOMITING Thiamine HCl (Vitamin B-1 Tab*) 100 mg PO DAILY [facility] Vital Signs 06/24/17 06/24/17 06/24/17 14:05 14:11 16:06 Temperature 98.2 F 98.2 F 97.8 F Pulse Rate 81 81 85 Respiratory 20 16 Rate Blood Pressure 146/93 146/93 150/95 (mmHg) O2 Sat by Pulse 99 99 98 Oximetry 06/24/17 06/24/17 06/24/17 16:08 19:22 20:00 Temperature 97.8 F Pulse Rate 85 73 Respiratory 16 16 Rate Blood Pressure 150/95 (mmHg) O2 Sat by Pulse 98 97 Oximetry 06/24/17 06/24/17 06/24/17 20:22 20:30 22:36 Temperature 98.2 F Pulse Rate 82 81 Respiratory 16 20 Rate Blood Pressure 157/91 130/73 (mmHg) O2 Sat by Pulse 99 99 Oximetry 06/25/17 06/25/17 06/25/17 00:11 02:10 04:12 Temperature Pulse Rate 74 73 70 Respiratory 16 16 Rate Blood Pressure 155/90 149/91 161/91 (mmHg) O2 Sat by Pulse 99 97 98 Oximetry 06/25/17 06/25/17 06/25/17 06:07 08:00 08:16 Temperature 98.4 F Pulse Rate 76 66 Respiratory 16 16 15 Rate Blood Pressure 158/88 (mmHg) O2 Sat by Pulse 97 97 Oximetry 06/25/17 06/25/17 06/25/17 08:26 09:00 10:24 Temperature 97.3 F 98.1 F Pulse Rate 71 79 81 Respiratory 16 16 Rate Blood Pressure 187/101 160/99 156/89 (mmHg) O2 Sat by Pulse 100 100 Oximetry Oxygen Devices in Use Now: None Appearance: NAD, sitting up in a chair Ears/Nose/Mouth/Throat: Mucous Membranes Moist Respiratory: Symmetrical Chest Expansion and Respiratory Effort, Clear to Auscultation Cardiovascular: NL Sounds; No Murmurs; No JVD, RRR Abdominal: NL Sounds; No Tenderness; No Distention Extremities: No Edema Skin: No Rash or Ulcers Neurological: Alert and Oriented x 3, NL Muscle Strength and Tone Lines/Tubes/Other Access: Clean, Dry and Intact Peripheral IV - site benign Nutrition: Taking PO's Result Diagrams: 06/24/17 05:30 06/24/17 05:30 Additional Lab and Data: Microbiology and Other Data: Microbiology 06/23/17 10:00 Stool Gross Appearance - Final Stool C. difficile DNA Amplification - Final 027 Presumptive NEGATIVE Toxigenic C.diff NEGATIVE Assess/Plan/Problems-Billing Assessment: Ms. Wu is a 47 yo female with PMH significant for HTN, diabetes and alcoholism who presented to the emergency rom with complaints of nausea and vomiting and was requesting alcohol detox. - Patient Problems (1) Alcohol withdrawal Code(s): F10.239 - ALCOHOL DEPENDENCE WITH WITHDRAWAL, UNSPECIFIED SNOMED Code (s): 765913069 Comment: - With delirium tremens - WAM score 2-3 - Social work consult, Pt would like outpatient rehab (2) Electrolyte abnormality Code(s): E87.8 - OTH DISORDERS OF ELECTROLYTE AND FLUID BALANCE, NEC SNOMED Code(s): 315825144 Comment: - Suspect secondary to diarrhea - Hypokalemia - resolved - hypomagnesemia - resolved (3) HTN (hypertension) Code(s): I10 - ESSENTIAL (PRIMARY) HYPERTENSION SNOMED Code(s): 47379565 Comment: - SBP 150-180's - suspect this is secondary to withdrawal symptoms and possibly too small of a BP cuff being used - Continue lisinopril and HCTZ, will start amlodipine today (4) Diabetes Code(s): E11.9 - TYPE 2 DIABETES MELLITUS WITHOUT COMPLICATIONS SNOMED Code(s) : 55985752 Comment: - Glucose 140-230's - Resume home glipizide (5) DVT prophylaxis Code(s): KWT4939 - SNOMED Code(s): 254354482 Comment: (6) Full code status Code(s): Z78.9 - OTHER SPECIFIED HEALTH STATUS SNOMED Code(s): 195146023 Status and Disposition: Inpatient. Stable for discharge to home today.
[2017-06-25 12:58] VITALS: BP 156/85
[2017-06-25] MEDS ORDERED: amLODIPine TAB* 5 MG PO SCH (13:00)
[2017-06-26] MEDS ORDERED: amLODIPine TAB* 5 MG PO SCH (09:00)
--- NOTE | 2017-06-26 12:46 | DS ---
CC: ISABELLE Hodgson * DISCHARGE SUMMARY: DATE OF ADMISSION: 06/22/17. DATE OF DISCHARGE: 06/25/17. ATTENDING PHYSICIAN: Dr. Abilio Paz*(dictated by Becky Howard NP) PRIMARY CARE PROVIDER: ISABELLE Hodgson. PRIMARY DIAGNOSES: 1. Alcohol withdrawal. 2. Hypertension. SECONDARY DIAGNOSES: 1. Alcoholism. 2. Diabetes mellitus. STUDIES WHILE IN THE HOSPITAL: 1. Abdomen and pelvis CT on 06/22/17. Radiologist impression: Hepatomegaly with hepatic steatosis, otherwise negative. 2. Chest x-ray on 06/22/17. Radiologist impression: No active cardiopulmonary disease noted. DISCHARGE MEDICATIONS: New home medications: Amlodipine 5 mg oral daily. Continued home medications: 1. Albuterol HFA 2 puffs inhalation every 4 hours as needed for shortness of breath or wheeze. 2. Ibuprofen 400 mg oral every 6 hours as needed for pain. 3. Glipizide XL 5 mg oral daily. 4. Lisinopril/hydrochlorothiazide 20/25 one tablet oral daily. HISTORY OF PRESENT ILLNESS/HOSPITAL COURSE: Ms. Wu is a 47-year-old female with past medical history significant for alcoholism, hypertension, diabetes mellitus, who presented to the emergency room with complaints of nausea and vomiting and requesting alcohol detox. The patient stated she had been doing poorly for approximately 8 years, have been trying to taper herself off of alcohol, but felt that she was unsuccessful in doing so. The patient drank two beers and two shots before coming to the emergency room to help with the shakings she was having earlier in the day. The patient has not been sober in the last 4 to 5 years. She denies any history of seizures with alcohol withdrawal. The patient was also having significant amount of diarrhea for the last week or so and was reporting a left flank and back pain for five days, which was quite uncomfortable, worse with coughing and vomiting. The patient's appetite was poor. She did not take any home medications for two days. The patient also had an episode of hypoglycemia over the last week. As she had not been drinking or eating well, so she stopped her glipizide following that episode and her glucoses began to climb up into the 200s. She restarted the medication again on her own, but then had been 2 days without her medication. The patient presented to the emergency room for further evaluation of her symptoms. In the emergency room, the patient had a chest x-ray and an abdomen and pelvis CT showing no acute findings. The patient's labs were remarkable for lactic acidosis, with a repeat lactic acid of 2.5. She had transaminase and total bilirubin within normal limits. Her lipase was normal. She had a urinalysis that was unremarkable and a serum alcohol of 274. Hospice was asked to evaluate the patient for admission. While in the hospital, the patient was placed on a VAM protocol with as needed lorazepam. The patient was tremulous and tachycardic and hypertensive. It was initially felt that the patient's hypertension was secondary to her alcohol withdrawal, although she did continue to be hypertensive during her stay. Over the course of the stay, the patient was feeling better and was not requiring any lorazepam. Due to her persistent hypertension, she was started on amlodipine today for her blood pressure. The patient did not want to do inpatient rehab and wanted to do outpatient rehab. Ms. Wu is stable for discharge to home today. Vital signs are as follows: Temperature 98.0, heart rate 78, respiratory rate 20, O2 sat 99% on room air, blood pressure 156/85. DISCHARGE PLAN: Ms. Wu will be discharged back to home. Activity as tolerated. Regular diet. As far as her alcohol withdrawal she has been asked to call the [facility] to set up a followup appointment. The patient should be seen in followup by her primary care provider , Justine Donahue. She has appointment on June 30, 2017, at 11:20 p.m. The patient has been encouraged to no longer drink alcohol. As far as the patient' s hypertension, she was started on amlodipine 5 mg oral daily today and continued on her other usual home medications. The patient has been asked to return to the emergency room for any chest pain, shortness of breath. After starting on amlodipine for her hypertension, she has also been encouraged to eat a low-sodium diet. This is a summarized report of a complex medical history and hospital stay. For further details, please see the entire medical record. TIME SPENT: Time for this discharge was approximately 50 minutes, greater than half of that was spent with the patient discussing discharge plans and instructions. CONDITION ON DISCHARGE: Stable. BECKY HOWARD, CLINICAL LABORATORY ASSISTANT [id number]/[facility] #: [id number] [facility]
== END 2017-06-25 14:00 | disposition home or self-care (01) | DRG 775 ==
LOC: ED 10:35 → MED 17:08
PROVIDERS: ADMIT Hospitalist; ATTEND Internal Medicine
DX: F10.239 Alcohol dependence with withdrawal, unspecified (principal); I10 Essential (primary) hypertension; Y90.8 Blood alcohol level of 240 mg/100 ml or more; E11.9 Type 2 diabetes mellitus without complications; Z79.84 Long term (current) use of oral hypoglycemic drugs; Z98.84 Bariatric surgery status; Z79.1 Long term (current) use of non-steroidal anti-inflammatories (NSAID); Z79.899 Other long term (current) drug therapy
CPT/HCPCS: 36415; 71020; 74177; 80048; 80053; 80320; 81003; 83605; 83690; 83735; 84484; 85025; 86140; 87493; 90686; 94640; A9270-GY; G0480; J1650; J1885; J2060; J2270; J2405; J3411; J3475; Q9967

== ENCOUNTER 2017-09-16 11:35 | Emergency (ER) | payer BC ==
[2017-09-16 11:43] VITALS: BP 185/105
== END 2017-09-16 13:00 | disposition left against medical advice (07) ==
LOC: ED 11:35
DX: R05 Cough (principal); Z53.21 Procedure and treatment not carried out due to patient leaving prior to being seen by health care provider

== ENCOUNTER 2017-09-17 05:42 | Observation (INO) | payer BC ==
[2017-09-17 06:34] LABS: Hematocrit 38 % (35-47); Hemoglobin 12.6 g/dl (12.0-16.0); Mean Corpuscular HGB Conc 33 g/dl (31-36); Mean Corpuscular Hemoglobin 28 pg (27-31); Mean Corpuscular Volume 85 fL (80-97); Mean Platelet Volume 6 um3 (7.4-10.4); Red Blood Count 4.44 10^6/ul (4.0-5.4); Red Cell Distribution Width 20 % (10.5-15); White Blood Count 4.9 10^3/ul (3.5-10.8)
[2017-09-17 06:46] LABS: Albumin 3.4 g/dL (3.2-5.2); BUN/Creatinine Ratio 14.8 (8-20); EGFR Non-African American 122.1 (>60); Magnesium 1.6 mg/dL (1.9-2.7); Potassium 3.2 mmol/L (3.5-5.0); Total Protein 6.1 g/dL (6.4-8.9)
[2017-09-17 06:47] LABS: Globulin 2.7 g/dL (2-4); Total Bilirubin 0.2 mg/dL (0.2-1.0)
[2017-09-17] MEDS ORDERED: Potassium Chloride LIQUID* 20 MEQ PACKET PO ONE (06:55)
[2017-09-17] MEDS ORDERED: Thiamine IV* 100 MG/ML 2 ML VIAL IM ONE ×2 (06:57→07:31)
[2017-09-17] MEDS ORDERED: D10W 500 ML BAG* 500 ML IV SCH ×4 (07:00→10:33)
[2017-09-17] MEDS ORDERED: NS 0.9% 1000 ML* 1,000 ML IV SCH ×2 (07:30→08:00)
[2017-09-17] MEDS ORDERED: Albuterol HFA INHALER* 8 gm MDI INH PRN (07:31)
[2017-09-17] MEDS ORDERED: LORazepam TAB(*) 0.5 MG PO PRN (07:32)
[2017-09-17] MEDS ORDERED: Magnesium Sulfate 2 GM IV* 2 GM/50 ML BAG IVPB ONE (07:34)
[2017-09-17] MEDS ORDERED: LORazepam TAB(*) 0.5 MG ONE (07:59)
[2017-09-17 08:11] LABS: Urine Bacteria 1+ (Absent); Urine Bilirubin Negative (Negative); Urine Glucose Negative (Negative); Urine Nitrite Negative (Negative)
[2017-09-17] MEDS ORDERED: Potassium Chlor TAB* 20 MEQ TAB.ER PO ONE (08:11)
[2017-09-17] MEDS: amLODIPine TAB* 5 MG PO SCH (08:12)
[2017-09-17] MEDS: Folic Acid TAB* 1 MG PO SCH (08:12)
[2017-09-17] MEDS ORDERED: LORazepam TAB(*) 1 MG PO SCH (09:00)
[2017-09-17] MEDS ORDERED: PROCHLORPERAZINE INJ 5 MG/ML 2 ML VIAL IV PRN (09:58)
[2017-09-17] MEDS: KCL 10 MEQ/50 ML IVPREMIX* 10 MEQ/50 ML BAG IV SCH ×2 (10:00→11:39)
[2017-09-17] MEDS: Thiamine TAB* 100 MG TAB PO SCH (10:01)
[2017-09-17] MEDS: Multivitamins/Minerals TAB PO SCH (10:01)
[2017-09-17] MEDS ORDERED: PROCHLORPERAZINE INJ 5 MG/ML 2 ML VIAL ONE (10:05)
--- NOTE | 2017-09-17 11:08 | HP ---
CC: ISABELLE Hodgson * HISTORY AND PHYSICAL: DATE OF ADMISSION: 09/17/17 PRIMARY CARE PROVIDER: ISABELLE Hodgson CHIEF COMPLAINT: The patient was found unresponsive by her boyfriend. HISTORY OF PRESENT ILLNESS: Mickie Wu is a 47-year-old female with history of alcoholism and diabetes as well as hypertension, and was found by her boyfriend unresponsive. When the ambulance crew arrived on the site, the patient was noted to have a sugar of 45. She was treated with dextrose. Currently her sugars are holding on above 100 on dextrose 10% infusion. The patient is going to be placed on overnight observation. She had been taking glipizide 5 mg daily and not eating that well. The patient also stated that she had been having diarrhea for the past several days. She denies abdominal pain or fever. PAST MEDICAL HISTORY: 1. Alcoholism. 2. Hypertension. 3. History of diabetes. PAST SURGICAL HISTORY: 1. Status post gastric bypass surgery in the past. 2. Tubal ligation. 3. x2. 4. Bilateral carpal tunnel release. MEDICATIONS AT HOME: Include: 1. Glipizide 5 mg daily. 2. Norvasc 5 mg daily. 3. Lisinopril/hydrochlorothiazide 20/25 mg 1 tablet daily. 4. Albuterol inhaler on a p.r.n. basis. SOCIAL HISTORY: The patient has been smoking 1 pack per day for the past 30 years. She has two adult sons. One has a court date today and is in senior care. The younger one Pelon is her chosen surrogate. She lives with her son and her father in a house. She drinks approximately a pint of hard liquor a day with 6 to 12 beers a day. She denies any drug use. REVIEW OF SYSTEMS: Please see history of present illness. All the remaining 12 systems reviewed with the patient and were otherwise negative. PHYSICAL EXAMINATION GENERAL: This is a very pleasant 47-year-old obese female with a BMI of 34. The patient is in no acute distress. Alert, awake, and oriented x3. VITAL SIGNS: Blood pressure 154/81, heart rate of 77 and regular, respiratory rate 20, oxygen saturation 95% on room air, temperature 97.6. HEENT: Head atraumatic, normocephalic. Eyes: Pupils are equal, reactive to light and accommodation. Oropharynx clear. Mucosa moist. NECK: Supple. No JVD. No bruits bilaterally. RESPIRATORY: Clear to auscultation bilaterally. CARDIOVASCULAR: Regular rate and rhythm. No murmurs. ABDOMEN: Soft and nontender. Bowel sounds are present in all 4 quadrants. No hepatomegaly palpated. EXTREMITIES: There is no edema. Pulses are +2 bilaterally. No clubbing or cyanosis. SKIN EVALUATION: The patient's face is flush. She has small spider angioma noted on her lower neck, upper chest area. No rashes noted. PSYCHIATRIC EVALUATION: The patient is oriented x2 with no evidence of anxiety or depression. LABORATORY DATA: Showed white blood cell count of 4.9, hemoglobin of 12.6, hematocrit of 30, and platelets of 283,000. Sodium of 131, potassium of 3.2, chloride 97, carbon dioxide 25, BUN 8, creatinine 0.54. Liver function tests showed AST of 52, otherwise unremarkable. The patient's magnesium was 1.6, glucose of 108 noted at 7 a.m. Currently the patient's glucose level is in the 150s after an hour of D10 infusion at 100 mL an hour. Alcohol level 135. ASSESSMENT AND PLAN: For the patient's hypoglycemia while being on sulfonylurea. The patient is going to be continued on dextrose infusion with fingersticks every 2 hours. Due to her sugars being consistently above 100 and the patient being awake and able to tolerate diet, I will drop the patient's dextrose infusion to 50 mL an hour. I do not believe that sulfonylurea is a safe agent for the patient's diabetes control at this point. With her history of alcohol abuse, metformin may also not be the greatest combination. She may be a candidate for Prandin in the future. For the time being, she is going to be off any diabetic agents. I had educated the patient that hypoglycemia may __ ____ very quickly and if her sugars occasionally run over 200, it is likely safer then being hypoglycemic and unresponsive. In regards to patient's alcoholism. She had been drinking excessively for over 6 years now. She contributes her problem with drinking due to her family problems. At this point, social work consult is going to be requested. The patient may be a good candidate for inpatient rehab since she failed her outpatient treatment in June 2017. I placed the patient on thiamine, folate, Ativan withdrawal protocol. The patient was educated about the harmful effects of alcoholism, which she is aware of. In regards to her hypertension, amlodipine is going to be continued and remaining blood pressure medications are going to be held for the time being. For her electrolyte abnormalities, the patient's hypokalemia and hypomagnesemia is going to be corrected, both p.o. and IV. For DVT prophylaxis, the patient is low risk and ambulation is encouraged. The patient's code status is full. Her surrogate is her son, Kemar. TIME SPENT: Approximately 65 minutes was spent on the admission of this patient , more than half the time was spent [id number] with the patient during the interview and physical exam. [id number]/[facility] #: [id number] MTDD
[2017-09-17] MEDS: D10W 1000 ML BAG* 1,000 ML IV SCH ×2 (13:05→17:10)
[2017-09-17] MEDS: Acetaminophen TAB* 325 MG PO PRN (19:45)
[2017-09-18] MEDS: D10W 1000 ML BAG* 1,000 ML IV SCH (01:19)
[2017-09-18] MEDS: Acetaminophen TAB* 325 MG PO PRN (04:30)
[2017-09-18 07:29] LABS: Hematocrit 33 % (35-47); Hemoglobin 11.1 g/dl (12.0-16.0); Mean Corpuscular HGB Conc 34 g/dl (31-36); Mean Corpuscular Hemoglobin 29 pg (27-31); Mean Corpuscular Volume 86 fL (80-97); Mean Platelet Volume 7 um3 (7.4-10.4); Red Blood Count 3.85 10^6/ul (4.0-5.4); Red Cell Distribution Width 21 % (10.5-15); White Blood Count 5.8 10^3/ul (3.5-10.8)
[2017-09-18 07:56] LABS: BUN/Creatinine Ratio 9.1 (8-20); Calcium 8.3 mg/dL (8.6-10.3); EGFR African American 153.7 (>60); EGFR Non-African American 119.5 (>60); Potassium 3.8 mmol/L (3.5-5.0)
[2017-09-18] MEDS: Thiamine TAB* 100 MG TAB PO SCH (09:32)
[2017-09-18] MEDS: amLODIPine TAB* 5 MG PO SCH (09:32)
[2017-09-18] MEDS: Folic Acid TAB* 1 MG PO SCH (09:33)
[2017-09-18] MEDS: Multivitamins/Minerals TAB PO SCH (09:33)
[2017-09-18 11:52] VITALS: BP 148/80
--- NOTE | 2017-09-19 02:33 | DS ---
CC: ISABELLE Hodgson * DISCHARGE SUMMARY: DATE OF ADMISSION: 09/17/17 DATE OF DISCHARGE: 09/18/17 PRIMARY CARE PROVIDER: ISABELLE Hodgson DISCHARGE DIAGNOSES: 1. The patient was found unresponsive due to hypoglycemia secondary to glipizide use. 2. Alcoholism. 3. Poor diet. 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 History of hypertension. 3. History of diabetes. 4. Status post gastric bypass surgery in the past. MEDICATIONS AT DISCHARGE: Include: 1. Multivitamin 1 tablet daily. 2. Albuterol inhaler on a p.r.n. basis. 3. Amlodipine 5 mg daily. 4. Lisinopril/hydrochlorothiazide 20/25 mg one tablet daily. The patient's glipizide was held. At discharge, the patient recommended to follow up with her primary care provider in 4 to 7 days. The patient also was seen by school social worker and she is planning to follow up with [facility] on 09/20/17. LABORATORY DATA AND STUDIES PERFORMED DURING THE HOSPITAL STAY: Included: On 09/18/17, sodium of 135, potassium 3.8, chloride 103, carbon dioxide 25, BUN 5, creatinine 0.55. White blood cell count 5.8, hemoglobin 11.1, hematocrit of 33 and platelets of 252. Alcohol level on admission was 135. HOSPITALIZATION COURSE: Mickie Wu is a 47-year-old female with history of alcoholism who presented to the hospital after she was found by her boyfriend unresponsive and she was noted to have a sugar of 45 by EMS. The patient has a history of diabetes, which had been controlled with glipizide. She has had problems with hypoglycemia especially when she drinks alcohol, she does not eat and then gets hypoglycemia and intoxicated. Her alcohol level at presentation was 135. The patient was placed on overnight observation and treated with 10% dextrose infusion over the next 24 hours. During that time, she was also treated with Ativan for withdrawal. For 24 hours, she did very well and by the time of discharge, she had no further withdrawal symptoms and her hypoglycemia resolved. She was able to eat a full meal and she is going to be discharged home with recommendation to follow up with her primary care provider in 4 to 7 days. At this point, the patient's hemoglobin A1c was noted to be 6.5 during her hospital stay and it was recommended for the patient to not take any oral hypoglycemic agent and continue to a strict diabetic diet. The patient is to follow up with her primary care provider and with addiction services. If she decides to stop drinking alcohol and to adhere to a diabetic diet, she could be restarted on at a smaller dose. Also, she may be a good candidate for metformin. At this point though, I do not believe that her sugars are in the range of 150 to 200, she needs at this point oral medications and a risk of hypoglycemia if she rebounds to drinking this high. PHYSICAL EXAMINATION: At time of discharge, blood pressure 148/80, heart rate of 85 and regular, respiratory rate 16, oxygen saturation 99% on room air, temperature 98.0. General: The patient is a very pleasant 47-year-old female, who is in no acute distress. Alert, awake, and oriented x3. HEENT: Head atraumatic, normocephalic. Eyes: Pupils are equal, reactive to light and accommodation. Oropharynx clear. Mucosa moist. Neck: Supple. No JVD. No bruits bilaterally. Cardiovascular: Regular rate and rhythm. No murmurs. Respiratory: Clear to auscultation bilaterally. Abdomen: Soft, nontender. Bowel sounds are present in all 4 quadrants. Extremities: There is no edema. Pulses are +2 bilaterally. No clubbing or cyanosis. Neuro evaluation: Speech clear. Cranial nerves II through XII grossly intact. Motor strength is 5/5 bilaterally. Psychiatric evaluation: The patient is very pleasant, oriented x3 with no evidence of anxiety or depression. Please also note in addition, there are no tremors noted and no symptoms or signs of withdrawal at discharge. Please note that this is a discharge summary of the patient's hospital stay. Please refer to further medical records for details. [id number]/[facility] #: [id number] [facility]
== END 2017-09-18 13:45 | disposition home or self-care (01) ==
LOC: ED 05:42 → MED 07:23
PROVIDERS: ADMIT Internal Medicine; ATTEND Internal Medicine
DX: E11.649 Type 2 diabetes mellitus with hypoglycemia without coma (principal); F10.20 Alcohol dependence, uncomplicated; Z98.84 Bariatric surgery status; Z79.84 Long term (current) use of oral hypoglycemic drugs; Z79.899 Other long term (current) drug therapy; F17.210 Nicotine dependence, cigarettes, uncomplicated; R19.7 Diarrhea, unspecified
CPT/HCPCS: 36415; 80048; 80053; 80320; 81003; 81015; 83036; 83735; 85025; 85610; 87086; 96361; 96365; 96372; 99285; A9270-GY; G0378; G0480; J0780; J3411; J3475; J3480

== ENCOUNTER 2017-11-04 09:44 | Emergency (ER) | payer BC ==
[2017-11-04] MEDS ORDERED: NS 0.9% 1000 ML* 1,000 ML IV ONE (11:51)
[2017-11-04 12:22] LABS: Urine Appearance Clear; Urine Blood Negative (Negative); Urine Color Straw; Urine Ketones 1+ (Negative); Urine Protein Negative (Negative); Urine Urobilinogen Negative (Negative)
[2017-11-04 12:57] LABS: ABS Basophils 0 10^3/ul (0-0.2); ABS Eosinophils 0.1 10^3/ul (0-0.6); ABS Lymphocytes 1.6 10^3/ul (1.0-4.8); ABS Monocytes 0.4 10^3/ul (0-0.8); ABS Neutrophils 3.1 10^3/ul (1.5-7.7); ABS Nucleated RBC 0 10^3/ul; Eosinophil % 1.4 % (0-6); Hematocrit 34 % (35-47); Hemoglobin 11.1 g/dl (12.0-16.0); Lymphocyte % 30.2 % (25-47); Mean Corpuscular HGB Conc 33 g/dl (31-36); Mean Corpuscular Hemoglobin 28 pg (27-31); Mean Corpuscular Volume 86 fL (80-97); Mean Platelet Volume 7 um3 (7.4-10.4); Nucleated Red Blood Cells % 0; Platelet Count 248 10^3/ul (150-450); Red Blood Count 3.96 10^6/ul (4.0-5.4); Red Cell Distribution Width 19 % (10.5-15); White Blood Count 5.2 10^3/ul (3.5-10.8)
--- NOTE | 2017-11-04 13:01 | RAD ---
HISTORY: Cough COMPARISONS: June 22, 2017 VIEWS: 1: frontal portable view of the chest at 12:20 PM FINDINGS: LINES AND TUBES: None. CARDIOMEDIASTINAL SILHOUETTE: The cardiomediastinal silhouette is normal for portable technique. PLEURA: The costophrenic angles are sharp. No pleural abnormalities are noted. LUNG PARENCHYMA: The lungs are clear. ABDOMEN: The upper abdomen is clear. There is no subphrenic gas. BONES AND SOFT TISSUES: No bone or soft tissue abnormalities are noted. IMPRESSION: NO ACTIVE CARDIOPULMONARY DISEASE.
[2017-11-04 13:18] LABS: EGFR Non-African American 124.7 (>60)
[2017-11-04] MEDS ORDERED: LORazepam TAB(*) 1 MG PO ONE (14:46)
[2017-11-04 15:40] VITALS: BP 142/89
--- NOTE | 2017-11-04 21:50 | ED ---
Wm Smith Thomas, scribed for Helen Garcia MD on 11/04/17 at 1132 . Substance Abuse/Use - HPI Summary HPI Summary: The patient is a 47 year old female presenting to the emergency department requesting detox from alcohol. She reports drinking 1 pint of liquor and 15 beers per day. She last drank this morning and has already consumed a 12-pack of beer today. She reports heavy drinking in the last four years. She has outpatient therapy for her alcoholism. She complains of anxiety and intermittent blurry vision, leg swelling, intermittent shortness of breath. The patient denies fever, double vision, neck pain, eye erythema, ear ache, chest pain, abdominal pain, dysuria, hematuria, rashes, bruises, headache, suicidal ideation, hallucinations, and depression. Past surgical history includes gastric bypass. - History Of Current Complaint Chief Complaint: EDGeneral Stated Complaint: DETOX-ALCOHOL Time Seen by Provider: 11/04/17 11:15 Hx Obtained From: Patient Ingestion History: Type/Name Of Drug - ETOH Aggravating Factor(s): Other - Unknown Alleviating Factor(s): Nothing Related Hx: Drug/Alcohol Last Used @ - this morning - Allergies/Home Medications Allergies/Adverse Reactions: Allergies Allergy/AdvReac Type Severity Reaction Status Date / Time Celecoxib [From Celebrex] Allergy Intermediate Itching Verified 09/17/17 05:49 PMH/Surg Hx/FS Hx/Imm Hx Endocrine/Hematology History: Reports: Hx Diabetes Denies: Hx Thyroid Disease Cardiovascular History: Reports: Hx Hypertension Respiratory History: Reports: Hx Asthma, Hx Seasonal Allergies History: Denies: Hx Renal Disease Sensory History: Denies: Hx Contacts or Glasses, Hx Deafness, Hx Hearing Aid, Hx Hearing Problem, Other Sensory Impairments Opthamlomology History: Denies: Hx Contacts or Glasses, Other Sensory Impairments Psychiatric History: Reports: Hx Substance Abuse - Alcoholism - Cancer History Hx Chemotherapy: No Hx Radiation Therapy: No - Surgical History Surgery Procedure, Year, and Place: C SECTION -2,. gastric bypass 06/2009. [place] - Immunization History Date of Tetanus Vaccine: unk Date of Influenza Vaccine: unk Infectious Disease History: No Infectious Disease History: Denies: Hx Clostridium Difficile, Hx Hepatitis, Hx Human Immunodeficiency Virus (HIV), Hx of Known/Suspected MRSA, Hx Shingles, Hx Tuberculosis, Hx Known/ Suspected VRE, Hx Known/Suspected VRSA, History Other Infectious Disease, Traveled Outside the [place] in Last 30 Days - Family History Known Family History: Positive: Cardiac Disease, Hypertension, Diabetes - Social History Alcohol Use: Daily Alcohol Amount: 15 beers and hard liquor daily, wine Hx Substance Use: No Substance Use Type: Reports: None Substance Use Comment - Amount & Last Used: occasionally Hx Tobacco Use: Yes Smoking Status (MU): Heavy Every Day Tobacco Smoker Type: Cigarettes Amount Used/How Often: 1/2 ppd Review of Systems Negative: Fever Positive: Blurred Vision - intermittent. Negative: Diplopia, Erythema Negative: Ear Ache Negative: Chest Pain Positive: Shortness Of Breath - intermittent Negative: Abdominal Pain Negative: dysuria, hematuria Positive: Edema. Negative: Other - neck pain Negative: Rash, Bruising Negative: Headache Positive: Anxious. Negative: Depressed, Other - suicidal ideation, hallucinations All Other Systems Reviewed And Are Negative: No Physical Exam - Summary Physical Exam Summary: Appearance: Alert, conversive, nontoxic appearing Skin: Warm, dry, no mottling, no rashes, no contusions HEENT: EOMI, PERRL, moist mucous membranes Neck: No masses on the neck, supple Respiratory: Clear to auscultation, breath sounds present, no rales, no rhonchi , no wheezes Cardiovascular: RRR, pulses are symmetrical in both lower and upper extremities Abdomen: Soft, non-tender Bowel Sounds: Present Musculoskeletal: No CVA tenderness, no obvious deformity, moving all extremities in a grossly normal manner Neurological: A&Ox3, CN II-XII Intact, moving all extremities symmetrically Psychiatric: Normal affect and mood Triage Information Reviewed: Yes Vital Signs On Initial Exam: Initial Vitals Temp Pulse Resp BP Pulse Ox 98.2 F 107 18 148/83 96 11/04/17 10:13 11/04/17 10:13 11/04/17 10:13 11/04/17 10:13 11/04/17 10:13 Vital Signs Reviewed: Yes Diagnostics - Vital Signs Vital Signs Temp Pulse Resp BP Pulse Ox 11/04/17 11:17 97 97 11/04/17 11:16 153/91 11/04/17 10:13 98.2 F 107 18 148/83 96 - Laboratory Result Diagrams: 11/04/17 12:40 11/04/17 12:40 Lab Statement: Any lab studies that have been ordered have been reviewed, and results considered in the medical decision making process. - Radiology CXR Xray Interpretation: No Acute Changes - No active cardiopulmonary disease. Dr. Garcia has reviewed this report. Radiology Interpretation Completed By: Radiologist Course/Dx - Diagnoses Provider Diagnoses: EtOH dependence, ETOH abuse Discharge - Discharge Plan Condition: Stable Disposition: HOME Patient Education Materials: Alcohol Dependence (ED) Referrals: Rowan HEDRICK,Justine Starks [Primary Care Provider] - Additional Instructions: return if worse or any new symptoms. it is important to take all medications as previously instructed. Follow up with your doctor and discuss the need for medications to help you detox from your alcohol dependence. The documentation as recorded by the Wm lara Thomas accurately reflects the service I personally performed and the decisions made by , Helen Garcia MD.
== END 2017-11-04 15:40 | disposition home or self-care (01) ==
LOC: ED 09:44
DX: F10.10 Alcohol abuse, uncomplicated (principal); F10.20 Alcohol dependence, uncomplicated; F17.210 Nicotine dependence, cigarettes, uncomplicated; E11.8 Type 2 diabetes mellitus with unspecified complications; I10 Essential (primary) hypertension
CPT/HCPCS: 36415; 71045; 80053; 80307; 80320; 81003; 83735; 84443; 85025; 99282; A9270-GY; G0480

== ENCOUNTER 2018-11-30 09:09 | Emergency (ER) | payer BC ==
[2018-11-30 11:41] VITALS: BP 151/79
--- NOTE | 2018-11-30 12:48 | UC ---
Respiratory Complaint HPI - HPI Summary HPI Summary: Pt c/o sob, wheezing and cough that worsens in recumbent position x 10 days. - History of Current Complaint Chief Complaint: UCRespiratory Stated Complaint: COUGH Time Seen by Provider: 11/30/18 10:59 Hx Obtained From: Patient Hx Last Menstrual Period: 11/10/18 ?: No Onset/Duration: Gradual Onset, Lasting Days - 10, Still Present, Worse Since - since onset Timing: Constant Severity Initially: Mild Severity Currently: Moderate Pain Intensity: 0 Pain Scale Used: 0-10 Numeric Character: Cough: Productive Aggravating Factors: Deep Breaths, Recumbent Position Alleviating Factors: Nothing Associated Signs And Symptoms: Positive: Wheezing, URI, Nasal Congestion Related History: Seasonal Allergies - Risk Factors Pulmonary Embolism Risk Factors: Smoking Cardiac Risk Factors: Smoking Pseudomonas Risk Factors: Negative Tuberculosis Risk Factors: Negative - Allergies/Home Medications Allergies/Adverse Reactions: Allergies Allergy/AdvReac Type Severity Reaction Status Date / Time celecoxib [From Celebrex] Allergy Swelling Verified 11/30/18 09:43 Home Medications: Home Medications Simvastatin TAB(NF) [Zocor 10 MG (NF)] 1 tab PO DAILY 11/30/18 [History Confirmed 11/30/18] glipiZIDE [Glipizide ER] 1 tab PO DAILY 11/30/18 [History Confirmed 11/30/18] PMH/Surg Hx/FS Hx/Imm Hx Previously Healthy: Yes - Surgical History Surgical History: Yes Surgery Procedure, Year, and Place: C SECTION -2,. gastric bypass 06/2009. CarPAL Tunnel - Family History Known Family History: Positive: Cardiac Disease, Hypertension, Diabetes - Social History Occupation: Employed Full-time Lives: With Family Alcohol Use: Occasionally Alcohol Amount: 15 beers and hard liquor daily, wine Substance Use Type: None Substance Use Comment - Amount & Last Used: occasionally Smoking Status (MU): Heavy Every Day Tobacco Smoker Type: Cigarettes Amount Used/How Often: 1/2 ppd Have You Smoked in the Last Year: Yes - Immunization History Most Recent Influenza Vaccination: 2016 Most Recent Tetanus Shot: up to date Most Recent Pneumonia Vaccination: Never Review of Systems All Other Systems Reviewed And Are Negative: Yes Constitutional: Positive: Fever, Chills, Fatigue Skin: Positive: Negative Eyes: Positive: Negative ENT: Positive: Sinus Congestion Respiratory: Positive: Shortness Of Breath, Cough Cardiovascular: Positive: Negative Gastrointestinal: Positive: Negative Genitourinary: Positive: Negative Motor: Positive: Negative Neurovascular: Positive: Negative Musculoskeletal: Positive: Myalgia Neurological: Positive: Negative Psychological: Positive: Negative Is Patient Immunocompromised?: No Physical Exam Triage Information Reviewed: Yes Appearance: Ill-Appearing Vital Signs: Initial Vital Signs Temp 98.6 F 11/30/18 09:39 Pulse 79 11/30/18 09:39 Resp 20 11/30/18 09:39 BP 152/91 11/30/18 09:39 Pulse Ox 99 11/30/18 09:39 Vital Signs Reviewed: Yes Eye Exam: Normal ENT: Positive: Nasal congestion Dental Exam: Normal Neck exam: Normal Respiratory: Positive: Decreased breath sounds, Wheezing Cardiovascular Exam: Normal Musculoskeletal Exam: Normal Neurological Exam: Normal Psychological Exam: Normal Skin Exam: Normal UC Diagnostic Evaluation - Laboratory O2 Sat by Pulse Oximetry: 97 Respiratory Course/Dx - Differential Dx/Diagnosis Differential Diagnosis/HQI/PQRI: Bronchitis, Influenza Provider Diagnosis: Pneumonia Discharge - Sign-Out/Discharge Documenting (check all that apply): Patient Departure All imaging exams completed and their final reports reviewed: No Studies - Discharge Plan Condition: Stable Disposition: HOME Prescriptions: Azithromycin TAB* [Zithromax TAB (Z-NIKKI) 250 mg #6 tabs] 2 tab PO .TODAY, THEN 1 DAILY #1 nikki Benzonatate CAP* [Tessalon 100 MG CAP*] 200 mg PO Q8H PRN #30 cap PRN Reason: Cough Codeine Phosphate/Guaifenesin [Codeine-Guaifen 10-100 mg/5 ml] 5 ml PO BEDTIME PRN #15 ml MDD 5 ML PRN Reason: Cough predniSONE TAB* [Deltasone 10 MG TAB*] 30 mg PO DAILY #12 tab Patient Education Materials: Pneumonia (ED) Referrals: Rowan HEDRICK,Justine Starks [Primary Care Provider] - If Needed - Billing Disposition and Condition Condition: STABLE Disposition: Home
== END 2018-11-30 11:41 | disposition home or self-care (01) ==
LOC: UCEAST 09:09
DX: J18.9 Pneumonia, unspecified organism (principal); F17.210 Nicotine dependence, cigarettes, uncomplicated; Z88.8 Allergy status to other drugs, medicaments and biological substances
CPT/HCPCS: 99212; G0463

== ENCOUNTER 2021-02-04 09:21 | Observation (INO) ==
[2021-02-04] MEDS ORDERED: NS 0.9% 1000 ml BAG 1,000 ML IV ONE ×3 (09:47→12:23)
[2021-02-04 10:16] LABS: ABS Basophils 0.1 10^3/ul (0-0.2); ABS Eosinophils 0.1 10^3/ul (0-0.6); ABS Lymphocytes 2.3 10^3/ul (1.0-4.8); ABS Monocytes 0.7 10^3/ul (0-0.8); ABS Neutrophils 4.4 10^3/ul (1.5-7.7); Eosinophil % 0.7 %; Hematocrit 42 % (35-47); Hemoglobin 14.1 g/dL (12.0-16.0); Lymphocyte % 30.7 %; Mean Corpuscular HGB Conc 34 g/dL (31-36); Mean Corpuscular Hemoglobin 33 pg (27-31); Mean Corpuscular Volume 96 fL (80-97); Mean Platelet Volume 6.6 fL (7.4-10.4); Nucleated Red Blood Cells % 0.1; Platelet Count 241 10^3/uL (150-450); Red Blood Count 4.34 10^6 /uL (3.70-4.87); Red Cell Distribution Width 14 % (10-15); White Blood Count 7.6 10^3/uL (3.5-10.8)
[2021-02-04 10:38] LABS: ALT 52 U/L (7-52); AST 99 U/L (13-39); Albumin 3.5 g/dL (3.2-5.2); Albumin/Globulin Ratio 1.3 (1-3); Alkaline Phosphatase 119 U/L (34-104); Anion Gap 9 mmol/L (2-11); Blood Urea Nitrogen 4 mg/dL (6-24); C Reactive Protein 1.04 mg/L (<8.01); CO2 Carbon Dioxide 26 mmol/L (22-32); Calcium 7.9 mg/dL (8.6-10.3); Chloride 98 mmol/L (101-111); EGFR African American 145.8 (>60); EGFR Non-African American 120.5 (>60); Globulin 2.7 g/dL (2-4); Glucose 254 mg/dL (70-100); Lipase 57 U/L (11.0-82.0); Magnesium 1.9 mg/dL (1.9-2.7); Potassium 3.3 mmol/L (3.5-5.0); Sodium 133 mmol/L (135-145); Total Protein 6.2 g/dL (6.4-8.9)
[2021-02-04 10:41] LABS: HCG Pregnancy < 0.60 mIU/mL
[2021-02-04] MEDS ORDERED: Iodixanol (CONTRAST) 320 MG/ML 100 ML SDV IV ONE (10:50)
[2021-02-04] MEDS: KCL 20 MEQ/100 ML IVPREMIX 20 MEQ/100 ML BAG IV SCH ×2 (11:03→15:20)
[2021-02-04 13:08] LABS: Urine Appearance Clear; Urine Bilirubin Negative (Negative); Urine Blood 2+ (Negative); Urine Color Straw; Urine Glucose Negative (Negative); Urine Ketones Negative (Negative); Urine Nitrite Negative (Negative); Urine Protein Negative (Negative); Urine Specific Gravity 1.027 (1.002-1.030); Urine Urobilinogen Negative (Negative)
[2021-02-04 13:17] LABS: Urine Bacteria Absent (Absent); Urine Red Blood Cell Trace(0-2/hpf) (Absent); Urine Squamous Epithelial Cell Present (Absent); Urine White Blood Cell Absent (Absent)
[2021-02-04] MEDS ORDERED: Dextrose 50% Syringe 50 ml 25 GM/50 ML SYRINGE IV PUSH PRN (13:19)
[2021-02-04] MEDS ORDERED: CALCIUM GLUCONATE 1GM/50ML NS 1 GM/50 ML BAG IV ONE (13:19)
[2021-02-04 14:29] LABS: INR 1.41 (0.82-1.09)
[2021-02-04] MEDS: Multivitamins/Minerals TAB PO SCH (17:49)
[2021-02-04] MEDS: Pantoprazole VIAL 40 MG VIAL IV SCH (17:50)
[2021-02-04] MEDS: NS 0.9% w/ 40 Meq KCL 1000 ML 1,000 ML IV SCH (17:53)
[2021-02-04] MEDS: Albuterol HFA INHALER 8 gm MDI INH PRN (23:55)
[2021-02-05 02:03] LABS: ABS Basophils 0.1 10^3/ul (0-0.2); ABS Eosinophils 0.1 10^3/ul (0-0.6); ABS Lymphocytes 2.9 10^3/ul (1.0-4.8); ABS Monocytes 0.8 10^3/ul (0-0.8); ABS Neutrophils 4.4 10^3/ul (1.5-7.7); Eosinophil % 1.2 %; Hematocrit 39 % (35-47); Hemoglobin 12.8 g/dL (12.0-16.0); Mean Corpuscular HGB Conc 33 g/dL (31-36); Mean Corpuscular Hemoglobin 33 pg (27-31); Mean Corpuscular Volume 100 fL (80-97); Mean Platelet Volume 7.3 fL (7.4-10.4); Nucleated Red Blood Cells % 0.1; Platelet Count 219 10^3/uL (150-450); Red Cell Distribution Width 14 % (10-15); White Blood Count 8.2 10^3/uL (3.5-10.8)
[2021-02-05 02:19] LABS: Calcium 7.4 mg/dL (8.6-10.3); EGFR African American 159.3 (>60); EGFR Non-African American 131.7 (>60); Potassium 4.1 mmol/L (3.5-5.0)
[2021-02-05] MEDS: NS 0.9% w/ 40 Meq KCL 1000 ML 1,000 ML IV SCH (03:34)
[2021-02-05] MEDS: Multivitamins/Minerals TAB PO SCH (10:50)
[2021-02-05] MEDS ORDERED: Sodium Phosphate ADULT ENEMA 133 ML BTL PR ONE (12:06)
[2021-02-05] MEDS ORDERED: Midazolam 10 mg/10 ml VIAL 1 mg/ml 10 ml VIAL (10 mg) ONE (14:14)
[2021-02-05] MEDS ORDERED: fentaNYL 100 mcg/2 ml 50 MCG/ML VIAL ONE (14:14)
[2021-02-05] MEDS ORDERED: Furosemide 20 mg/2 ml IV VIAL IV SLOW PU ONE (15:12)
[2021-02-05] MEDS: Pantoprazole VIAL 40 MG VIAL IV SCH (15:39)
[2021-02-05] MEDS: Albuterol HFA INHALER 8 gm MDI INH PRN (19:48)
[2021-02-06] MEDS: Albuterol HFA INHALER 8 gm MDI INH PRN (03:25)
[2021-02-06 05:09] LABS: ABS Eosinophils 0.1 10^3/ul (0-0.6); ABS Lymphocytes 1.9 10^3/ul (1.0-4.8); ABS Monocytes 0.4 10^3/ul (0-0.8); ABS Neutrophils 3.2 10^3/ul (1.5-7.7); Eosinophil % 1.7 %; Hematocrit 35 % (35-47); Hemoglobin 11.7 g/dL (12.0-16.0); Lymphocyte % 33.4 %; Mean Corpuscular HGB Conc 34 g/dL (31-36); Mean Corpuscular Hemoglobin 33 pg (27-31); Mean Corpuscular Volume 97 fL (80-97); Nucleated Red Blood Cells % 0.2; Platelet Count 166 10^3/uL (150-450); Red Blood Count 3.58 10^6 /uL (3.70-4.87); Red Cell Distribution Width 14 % (10-15); White Blood Count 5.7 10^3/uL (3.5-10.8)
[2021-02-06 05:19] LABS: Albumin/Globulin Ratio 1.3 (1-3); Calcium 7.6 mg/dL (8.6-10.3); EGFR African American 139.8 (>60); EGFR Non-African American 115.5 (>60); Globulin 2.3 g/dL (2-4); Potassium 3.4 mmol/L (3.5-5.0); Total Protein 5.3 g/dL (6.4-8.9)
[2021-02-06] MEDS ORDERED: Potassium Chlor 20 meq TAB.ER PO ONE (07:45)
[2021-02-06] MEDS: Multivitamins/Minerals TAB PO SCH (08:49)
[2021-02-06 11:28] VITALS: BP 128/73
== END 2021-02-06 13:45 | disposition home or self-care (01) ==
LOC: ED 09:21 → MED 13:23 → INTOOBSV 13:23 → MED 17:21
PROVIDERS: ADMIT Internal Medicine; ATTEND Internal Medicine